=== PATIENT | female | born 1970 | race Caucasian/White ===

== ENCOUNTER 2017-11-06 12:34 | Emergency (ER) | payer OTHER | END 2017-11-06 16:24 | disposition left against medical advice (07) | LOC: E/R 16:24 | DX: R55 Syncope and collapse (principal) | CPT/HCPCS: 93005; 99283-25 ==

== ENCOUNTER → 2018-07-31 | Outpatient (CLI) | payer OTHER | END | disposition home or self-care (01) | LOC: EEG 12:10 | DX: G40.909 Epilepsy, unspecified, not intractable, without status epilepticus (principal) | CPT/HCPCS: 95819 ==